=== PATIENT | male | born 1985 | race Caucasian/White ===

== ENCOUNTER 2023-02-14 08:00 | Emergency (ER) | payer BC, SELFPAY ==
[2023-02-14 08:09] VITALS: BP 147/96; PULSE 110; O2SAT 99; BMI 20.4
--- NOTE | 2023-02-14 08:17 | ED.WOUNDLAC ---
HPI - Wound/Laceration General Date Seen: 02/14/23 Chief Complaint: Laceration/Wound Stated Complaint: R hand lac Time Seen by Provider: 02/14/23 08:10 History of Present Illness HPI narrative: Generally healthy 37-year-old male presenting to the ER today with a linear laceration affecting the palm of his right hand on the palmar surface of the 2nd/webspace between the 2nd and 3rd MCP joints. He accidentally cut his hand this morning when he was trying to remove the pit from [employer]. Injury occurred this morning just prior to arrival. The knife either went through the pad or slipped off the side of the pad and poked into his hand. He washed the wound at home with water. Hemostasis was achieved by direct pressure. He has no other injuries. He has no numbness or tingling in his 2nd and 3rd digits. Normal flexion and extension of the MCP, PIP, DI P joints. He is otherwise healthy. No diabetes or immunosuppression. He is uncertain of his last tetanus shot. Nurses were able to check MRI ICD, last documented tetanus was in 1990, indicating that he is overdue. He did receive his childhood vaccinations series. Related Data Home Medications Medication Instructions Recorded Confirmed No Known Home Medications 09/06/22 02/14/23 Allergies Allergy/AdvReac Type Severity Reaction Status Date / Time No Known Drug Allergies Allergy Verified 02/14/23 08:15 Review of Systems Narrative: Negative except as above PFSH [facility] Social History Smoking Status: Never smoker Exam Narrative: Exam Narrative: General:-alert and oriented. Calm. Appropriately dressed. Well developed. HEENT: Atraumatic. Normal inspection of face. Nose normal. Lips and tongue normal. Cardiovascular: Brisk distal capillary refill in each digit. Strong radial pulse. No pulsatile bleeding. Good hemostasis was achieved prior to my evaluation. Pulmonary: Breathing easily. No distress. Skin: [place], warm. No rashes. Normal cap refill. Musculoskeletal: Normal except for right hand. He has a 1 cm linear laceration affecting the palmar surface of the right hand over the palmar surface of the MCP joint of the 2nd digit extending onto the webspace between the 2nd and 3rd digit. No bleeding. Careful inspection the wound in a bloodless field reveals no evidence for foreign body. Intact flexion of the MCP, PIP, DI P joints. Intact digital nerve function on the radial ulnar sides of the 2nd and 3rd digits. Brisk distal cap refill. Neuro: Alert and orient x3. GCS 15. No focal deficits. Intact median, radial, ulnar nerve motor and sensory function. Intact digital or function. Psych: Plate. Cooperative. Normal affect. Const: Vital Signs, click to edit/add: Vital Signs - 24 hr 02/14/23 08:09 Pulse Rate [Pulse Oximeter] 110 H Blood Pressure [Le ft Upper Arm] 147/96 H Pulse Oximetry 99 Oxygen Delivery Me thod Room Air Documenting provider has reviewed patient's vital signs: yes Course Vital Signs Vital signs: Initial Vital Signs Pulse Rate 110 H 02/14/23 08:09 Blood Pressure 147/96 H 02/14/23 08:09 Blood Pressure Mean 113 H 02/14/23 08:09 Pulse Oximetry 99 02/14/23 08:09 Oxygen Delivery Method Room Air 02/14/23 08:09 Vital Signs Pulse Rate 110 H 02/14/23 08:09 Blood Pressure 147/96 H 02/14/23 08:09 Pulse Oximetry 99 02/14/23 08:09 Oxygen Delivery Method Room Air 02/14/23 08:09 Pulse Rate 110 H 02/14/23 08:09 Blood Pressure 147/96 H 02/14/23 08:09 Pulse Oximetry 99 02/14/23 08:09 Oxygen Delivery Method Room Air 02/14/23 08:09 MDM - Wound/Laceration MDM Narrative Medical decision making narrative: Generally healthy male presenting with an uncomplicated laceration to the palmar surface of his right hand. He is generally healthy not immunosuppressed. This is a clean wound. At this point no indication for prophylactic antibiotics. Tetanus is updated here in the ER today. At this point no evidence for any neurovascular compromise, tendon injury, retained foreign body. No indications for x-ray. Wound repaired as noted above. Discussed wound care, infection precautions. Suture removal in 7-10 days. Precautions for return to the ER reviewed and questions answered. Discharge Plan Discharge Clinical Impression: Laceration Patient Disposition: Home, Self-Care Condition: Stable Instructions: Care For Your Stitches (DC), Laceration (ED) Additional Instructions: Please keep the wound clean and dry for at least 3-4 days. Keep the wound covered with a dressing until sutures are removed. Avoid lifting more than 2 lb with the right hand or other activities that would put stress on the wound edge. If you develop redness, swelling around the wound, fever, pus draining from the wound, or have any concerns, seizure doctor or return to the ER immediately. Please follow-up in clinic or urgent care (or you can return to the ER) for suture removal in 7-10 days. Prescriptions: No Action No Known Home Medications Follow Up/Referrals: Romain Melendez MD [Primary Care Provider] - Stand Alone Forms: [facility] Info Instructions Procedures Laceration Laceration 1: Pre procedure diagnosis: 1 cm laceration, palmar surface, right hand Post procedure diagnosis: Same Verification/time out: correct patient, correct site and correct procedure Site: upper extremity Side (If applicable): right Size (cm): 1 Description: linear Depth: simple, single layer Local Anesthetic: bupivacaine 0.25% Amount of anesthesia used (mL): 2 Pre-repair: wound explored and irrigated extensively Skin layer closed with: nylon Size (cm): 5-0 Number of sutures: 3 Technique: simple, interrupted Conclusion: patient tolerated procedure
[2023-02-14] MEDS: TETANUS/DIPHTH/PERTUSSIS 0.5 ML SYRINGE IM (09:16)
== END 2023-02-14 09:41 | disposition home or self-care (01) ==
LOC: ED 09:10
PROVIDERS: Emergency Provider Emergency Medicine; PCP Family Medicine
DX: S61.411A Laceration without foreign body of right hand, initial encounter (principal); W26.0XXA Contact with knife, initial encounter; Z23 Encounter for immunization
CPT/HCPCS: 12001; 90471; 90715; 99283; 99284

== ENCOUNTER 2023-02-21 12:25 | Emergency (ER) | payer BC, SELFPAY | END 2023-02-21 12:46 | disposition left against medical advice (07) | PROVIDERS: Emergency Provider Emergency Medicine Emergency Medical Services; PCP Family Medicine | DX: Z53.21 Procedure and treatment not carried out due to patient leaving prior to being seen by health care provider (principal) ==

== ENCOUNTER 2023-11-18 09:45 | Outpatient (RCR) | payer BC, SELFPAY | END 2024-03-17 23:59 | disposition home or self-care (01) | PROVIDERS: PCP Family Medicine; Visit Provider Family Medicine | DX: S29.012A Strain of muscle and tendon of back wall of thorax, initial encounter (principal); Z51.89 Encounter for other specified aftercare | CPT/HCPCS: 97110; 97140; 97161 ==